=== PATIENT | male | born 1935 | race Caucasian/White ===

== ENCOUNTER 2020-05-15 12:39 | Inpatient (IN) | payer MEDICARE, BC ==
[~2020-05-15] VITALS: Ht 175.3 cm; Wt 73.4 kg
[~2020-05-15 12:39] MED LIST: ALEVE 220MG220 MG PO; ANORO IH; ASPIRIN E.C. 8181 MG PO; AVODART 0.5MG0.5 MG PO; CARDURA 2MG2 MG PO; CENTRUM SILVER1 CTB PO; DYAZIDE 25 MG-31 CAP PO; FLOMAX 0.40.4 MG/CAP PO; FOSAMAX 70MG TA70 MG PO; IPRATROPIUM BROM3 M1 IH; LEVOXYL0.05 MG PO; LEVOXYL0.1 MG PO; MULTI VITAMINS1 TAB PO; NITROSTAT0.4 MG/TAB SL; PREDNISONE 5MG5 MG PO; PREDNISONE1 MG PO; PRILOSEC 20MG20 MG PO; PRINIVIL20 MG PO; PROSCAR 5MG5 MG PO; RT ADVAIR 228 DISKUS IH; TENORMIN 2525 MG/TAB PO; TENORMIN 5050 MG/TAB PO; THEO-24 20200 MG/CAP PO
[2020-05-15 16:12] LABS: COLLECTION METHOD CATHETER
[2020-05-15] MEDS ORDERED: TOPROL XL100 MG PO (16:12)
[2020-05-15] MEDS ORDERED: BUSPAR5 MG PO (16:14)
[2020-05-15] MEDS ORDERED: LASIX 40MG TABL40 MG PO (16:14)
[2020-05-15 16:16] LABS: MUCOUS Present /lpf; PH 7 (5-8); SQUAMOUS EPITHELIAL None Seen /hpf; URINE APPEARANCE Clear; URINE BACTERIA None Seen /hpf; URINE BILIRUBIN Negative (NEGATIVE); URINE BLOOD 1+ (NEGATIVE); URINE COLOR Yellow; URINE GLUCOSE Negative (NEGATIVE); URINE KETONE Trace (NEGATIVE); URINE LEUKOCYTE ESTERASE Negative (NEGATIVE); URINE NITRATE Negative (NEGATIVE); URINE PROTEIN(semi-quant) Negative (NEGATIVE); URINE UROBILINOGEN Negative (NEGATIVE)
[2020-05-15] MEDS ORDERED: PROAIR HFA0.09 MG/AC IH (16:16)
[2020-05-15] MEDS ORDERED: PULMICORT0.5 MG/2 M IH (16:16)
[2020-05-15] MEDS ORDERED: MIRALAX PA17 GM/Dose PO (16:18)
[2020-05-15] MEDS ORDERED: PROSCAR 5MG5 MG PO (16:18)
[2020-05-15] MEDS ORDERED: AMBIEN 5MG TABLE5 MG PO (16:19)
[2020-05-15] MEDS ORDERED: K-TAB20 PO (16:20)
--- NOTE | 2020-05-15 17:19 | NUR ---
PT TO ROOM 324 PER [facility]ART AND EMS FROM [facility], ATTEMPTED TO PLACE COTA UNSUCCESSFUL X3 UROLOGY CONSULT OBTAINED DR MORELOS TO PLACE WITH CYSTO. PT HAS FX LEFT HIP. ORTHO AND HOSPITALIST HAVE SEEN PT. SEE COMPUTER FOR ORDERS.
[2020-05-15 18:02] VITALS: BP 147/72; PULSE 99; TEMP 97.9
--- NOTE | 2020-05-15 18:19 | NUR ---
DR MORELOS ON FLOOR FOR BEDSIDE CYSTO AND CATHETER PLACEMENT. PT TOLERATED WELL.
[2020-05-15 19:16] LABS: RED BLOOD COUNT 4.13 M/mm3 (4.20-5.60)
[2020-05-15 19:17] LABS: BASO % 0.1 % (0.0-2.0); EOS % 0.1 % (0-4.0); GRAN # 12.2 (1.4-6.5); GRAN % 88.4 % (42.2-75.2); HEMATOCRIT 39.7 % (42.0-52.0); HEMOGLOBIN 13.2 g/dl (13.5-18.0); LYMPH # 0.4 (1.2-3.4); LYMPH % 2.8 % (20.0-51.0); MEAN CELL VOLUME 96 fl (80.0-100.0); MEAN CORPUSCULAR HEMOGLOBIN 32 pg (27.0-31.0); MEAN CORPUSCULAR HGB CONC 33 g/dl (33.0-37.0); MONO # 1.1 (0.1-0.6); MONO % 8.2 % (1.7-9.3); PLATELET COUNT 149 K/mm3 (130-400); REDCELL DISTRIBUTION WIDTH-CV 12.9 % (11.5-14.5)
[2020-05-15 19:24] LABS: ALBUMIN 3.9 gm/dL (3.5-5.0); BILIRUBIN,TOTAL 1.3 mg/dL (0.0-1.0); CALCIUM 8.9 mg/dL (8.4-10.2); CREATININE, serum 1.07 (0.66-1.25); POTASSIUM 4.1 mmol/L (3.4-5.0); TOTAL PROTEIN 7.5 gm/dL (6.4-8.2)
[2020-05-15 19:29] LABS: INR 1.1 (0.8-3.0); PROTHROMBIN TIME 12.1 SECONDS (9.7-12.8)
[2020-05-15 19:31] LABS: PRE ALBUMIN 20.7 mg/dL (17.6-36.0)
[2020-05-15 20:02] VITALS: BP 121/67; PULSE 80; TEMP 98.1
--- NOTE | 2020-05-15 21:30 | NUR ---
Pt. laying in bed at this time. Pt.is A&XO3, assessment complete. IV to rt. forearm patent. Pt. denies pain or other needs, call light within reach.
[2020-05-16] VITALS (13 sets, daily range): BP systolic 88–133; BP diastolic 49–77; PULSE 59–81; TEMP 97.6–98.4
--- NOTE | 2020-05-16 07:29 | NUR ---
Lying in bed in supine position with eyes open. Alert and oriented x3. Rates pain to left hip 3-4/10, no pain if he does not move it. Limited movement in left leg. CMS intact. Patient says that he is ready for his surgery today. Denies any additional needs at this time.
[2020-05-16 07:38] LABS: CALCIUM 9.4 mg/dL (8.4-10.2); CREATININE, serum 1.05 (0.66-1.25); POTASSIUM 4.2 mmol/L (3.4-5.0)
[2020-05-16 07:42] LABS: INR 1.1 (0.8-3.0); PROTHROMBIN TIME 12.6 SECONDS (9.7-12.8)
[2020-05-16 07:50] LABS: BILIRUBIN,TOTAL 1.3 mg/dL (0.0-1.0); TOTAL PROTEIN 7.5 gm/dL (6.4-8.2)
[2020-05-16 07:52] LABS: BASO % 0.2 % (0.0-2.0); EOS % 0.2 % (0-4.0); GRAN # 10.5 (1.4-6.5); GRAN % 83.3 % (42.2-75.2); HEMATOCRIT 40.4 % (42.0-52.0); HEMOGLOBIN 13.4 g/dl (13.5-18.0); LYMPH # 0.6 (1.2-3.4); LYMPH % 4.9 % (20.0-51.0); MEAN CELL VOLUME 97 fl (80.0-100.0); MEAN CORPUSCULAR HEMOGLOBIN 32 pg (27.0-31.0); MEAN CORPUSCULAR HGB CONC 33 g/dl (33.0-37.0); MEAN PLATELET VOLUME 10.7 fl (7.4-10.4); MONO # 1.4 (0.1-0.6); MONO % 11.2 % (1.7-9.3); PLATELET COUNT 137 K/mm3 (130-400); RED BLOOD COUNT 4.16 M/mm3 (4.20-5.60); REDCELL DISTRIBUTION WIDTH-CV 13.1 % (11.5-14.5)
--- NOTE | 2020-05-16 09:10 | NUR ---
Patient to surgery at this time via bed.
--- NOTE | 2020-05-16 12:22 | NUR ---
Patient back to room from surgery via bed. Alert and oriented x3. Denies pain at this time. Dressing to left hip/knee area CDI. Able to move right toes, no movement in left extremity at this time. Skin warm and pink in left lower extremity. Cap refill in toes <3 seconds. Pulses 2+. Patient provided with water at this time. Denies additional needs.
--- NOTE | 2020-05-16 14:49 | NUR ---
Sitting up in bed watching TV. Denies pain. Patient able to move both legs at this time and able to identify areas of left foot touched. Dressing to left hip/knee remain CDI. Patient denies any additional needs at this time.
--- NOTE | 2020-05-16 17:34 | NUR ---
Sitting up in bed with eyes open. Minimal pain at this time. Able to move left leg more than previously. CMS intact. Dressing to left hip/knee CDI. Denies additional needs at this time.
--- NOTE | 2020-05-16 18:40 | NUR ---
SW attempted intake however patient was in surgery.
--- NOTE | 2020-05-16 20:25 | NUR ---
Pt. laying in bed at this time. Pt. is A&OX3, assessment complete. IV to rt. forearm patent, IV fluids infusing per orders. Dressing to lt. hip and lateral thigh CDI. Pt. reports pain at a 4 with movement, but grimices when lt. leg moves. Pt. offered pain medication. Pt. agrees to taking Tylenol. Pt. given meds per orders. Pt. denies further needs, call light within reach.
[2020-05-17 00:31] VITALS: BP 114/54; PULSE 76; TEMP 97.7
[2020-05-17 04:25] VITALS: BP 116/64; PULSE 77; TEMP 97.5
[2020-05-17 08:00] VITALS: BP 108/45; PULSE 74; TEMP 97.6
--- NOTE | 2020-05-17 08:08 | NUR ---
Sitting up in bed with eyes open. Alert and oriented x3. Rates pain to left hip 5/10, describes as sore. Patient expresses he is nervous to get out of bed today. Reassured patient. Dressing to left hip and knee CDI. [place] noted to both arms, skin tears to left arm covered with gauze and coban. Patient denies any additional needs or concerns at this time.
--- NOTE | 2020-05-17 11:35 | NUR ---
Sitting up in chair, daughter in room with the patient. Denies pain at this time, says that he only has pain when he gets up and moves the hip. Removed two dressings to left forearm. Patient has skin tear near left elbow, where other dressing was there is no wound so removed that dressing. Redressed skin tear to left elbow area with a telfa and kerlix wrap. Patient says that he feels more comfortable sitting in the recliner. Explain when he would like to get back in bed we can assist with that. Patient denies additional needs at this time.
--- NOTE | 2020-05-17 12:48 | NUR ---
SW met with patient to complete intake. Patient states that he lives in [facility] alone and his daughter Ally lives next door. Patient states that she is the primary contact [phone], but son Michael of [facility] is the [facility]- [phone]. Patient states that he does not utilize any DME and is independent with ADL's. Patient states that his PCP is Davonte Hernandez, that he obtains his medications from [facility], and he is able to afford his medications. Patient states that he will go back upon discharge, but will recieve PT/OT from the [facility]. Patient states that this is not set up, but this is what he would prefer to do. No DC date has been set. SW will continue to follow.
--- NOTE | 2020-05-17 14:39 | NUR ---
Pain in left hip when transferring from chair to BSC and then BSC to chair. Administer Tylenol as patient did not want pain meds but would agree to Tylenol. Remains sitting up in recliner at this time. Denies additional needs.
[2020-05-17 16:16] VITALS: BP 106/54; PULSE 89; TEMP 97.3
--- NOTE | 2020-05-17 18:00 | NUR ---
Sitting up in chair watching TV. Patient says he on and off is falling asleep. Ask patient if he would like to get in bed and the patient declines at this time. No pain at this time but says that he knows when he goes to move he will have some pain. Denies any additional needs or concerns at this time.
[2020-05-17 19:48] VITALS: BP 118/72; PULSE 96; TEMP 97.6
--- NOTE | 2020-05-17 21:00 | NUR ---
Pt. sitting up in bed at this time. Pt. is A&OX3, assessment complete. INT to rt. forearm patent. Dressing to lt. hip CDI. Pt. denies pain or other needs, call light within reach.
[2020-05-18 04:16] VITALS: BP 92/68; PULSE 82; TEMP 98
[2020-05-18 07:36] LABS: HEMOGLOBIN 10.4 g/dl (13.5-18.0)
[2020-05-18 07:51] LABS: HEMATOCRIT 31.8 % (42.0-52.0)
[2020-05-18 07:58] VITALS: BP 116/60; PULSE 69; TEMP 98.1
--- NOTE | 2020-05-18 08:00 | NUR ---
Patient eating breakfast in bed at this time. Patient is alert and oriented, answers questions appropriately. Patient declines pain medication this morning, states that he doesn't need it yet. Dressing to left hip is CDI. [place] in place per order, urine is clear and yellow. Patient denies needs at this time, call light within reach.
[2020-05-18] MEDS ORDERED: ASPI325T6 PO (11:04)
[2020-05-18] MEDS ORDERED: NORCO 325 MG-51 TAB PO (11:05)
[2020-05-18] MEDS ORDERED: TYLENOL 325MG325 MG PO (11:06)
[2020-05-18] MEDS ORDERED: VITAMIN C500 MG PO (11:07)
[2020-05-18] MEDS ORDERED: OSCAL 500 TAB500 MG PO (11:07)
[2020-05-18 12:10] VITALS: BP 106/48; PULSE 80; TEMP 98
[2020-05-18 12:27] VITALS: BP 106/48; PULSE 80; TEMP 98
--- NOTE | 2020-05-18 13:19 | NUR ---
[employer] Officer met with patient to review PT recommendation for post acute rehab. Patient would like to go to [facility]. TED contacted Anabelle at [facility] and faxed referral. Anabelle followed up to advise that they are able to accept and accepting physician does not need a dr to dr call as he is very familiar with patient. TED provided report # to [id number]. TED contacted patient's son, Everette who advised he would brain picker patient and take him to [facility]. Everette reports he will brain picker patient's oxygen system from his home before picking up patient. TED also contacted patient's daughter, Kaylee to provide update. All are in agreement with discharge plan. TED contacted Anabelle to provide transport time and faxed discharge orders. No additional needs at this time.
--- NOTE | 2020-05-18 13:28 | NUR ---
Initial visit; Patient friendly and receptive to spiritual care, especially prayer. Wire Stretcher offered prayer, encouragement and God's blessings to 'Frosty.'
--- NOTE | 2020-05-18 13:30 | NUR ---
Report called to recieving facility. Discussed dressing change instructions, discharge medications, and discharge appointments. Questions asked and answered. Administered PRN pain medication piror to discharge to manage pain during the trip. INT removed, catheter intact, hemostasis achieved. Patient escorted to ED entrance where he entered a private vehicle.
== END 2020-05-18 14:45 | disposition swing bed (61) | DRG 481 ==
LOC: SURG 12:39
PROVIDERS: Orthopaedic Surgery; Physician Assistant
PROC: 0QS706Z Reposition Left Upper Femur with Intramedullary Internal Fixation Device, Open Approach (ICD-10-PCS; principal; 2020-05-16 10:00)
DX: S72.142A Displaced intertrochanteric fracture of left femur, initial encounter for closed fracture (principal); I42.9 Cardiomyopathy, unspecified; D62 Acute posthemorrhagic anemia; N40.0 Benign prostatic hyperplasia without lower urinary tract symptoms; I10 Essential (primary) hypertension; J44.9 Chronic obstructive pulmonary disease, unspecified; M81.0 Age-related osteoporosis without current pathological fracture; E03.9 Hypothyroidism, unspecified; K21.9 Gastro-esophageal reflux disease without esophagitis; F41.9 Anxiety disorder, unspecified; M70.32 Other bursitis of elbow, left elbow; N32.0 Bladder-neck obstruction; F17.210 Nicotine dependence, cigarettes, uncomplicated; Z88.0 Allergy status to penicillin
CPT/HCPCS: 99223-AI; 99232-AI; A9284; C1713; C1769; J0690; J2370; J2704; J2795; J3010; J7120; J7121; J7512